=== PATIENT | male | born 1975 | race Caucasian/White ===

== ENCOUNTER 2017-05-04 07:19 | Emergency (ER) | payer OTHER ==
[~2017-05-04] VITALS: Ht 175.3 cm; Wt 125.0 kg
[2017-05-04 07:22] VITALS: BP 132/76; PULSE 96; RESP 18; TEMP 98.3; O2SAT 97
[2017-05-04] MEDS ORDERED: AMOX875T PO (07:31)
--- NOTE | 2017-05-04 07:36 | PD ---
HPI Chief Complaint: ENT Complaint Time Seen by Provider: 07:30 Travel History International Travel<30 days: No Contact w/Intl Traveler<30days: No Traveled to known affect area: No History of Present Illness HPI 42-year-old male here for evaluation of sore throat. Symptoms started yesterday. It is an aching pain is worse when swallowing. He endorses chills, subjective fevers. Denies rash, cough, congestion, recent travel. No significant past medical history. He denies any other complaints at this time. FOR[facility]LY [facility], [facility] Social History Alcohol Use: No Tobacco Use: No Substance Use: No Allergies-Medications (Allergen,Severity, Reaction): Coded Allergies: No Known Allergies (Unverified , 05/04/17) Reported Meds & Prescriptions Reported Meds & Active Scripts Active Amoxicillin 875 Mg Tab 875 Mg PO BID 10 Days Review of Systems Except as stated in HPI: all other systems reviewed are Neg Physical Exam Narrative GENERAL: Well-developed well-nourished male in no acute distress SKIN: Warm and dry. HEAD: Atraumatic. Normocephalic. EYES: Pupils equal and round. No scleral icterus. No injection or drainage. ENT: No nasal bleeding or discharge. Mucous membranes pink and moist. There is oropharyngeal erythema and exudate. Uvula midline with no mass effect. NECK: Trachea midline. No JVD. Mild anterior cervical lymphadenopathy. CARDIOVASCULAR: Regular rate and rhythm. No murmur appreciated. RESPIRATORY: No accessory muscle use. Clear to auscultation. Breath sounds equal bilaterally. Data Data Last Documented VS Vital Signs Date Time Temp Pulse Resp B/P (MAP) Pulse Ox O2 Delivery O2 Flow Rate FiO2 05/04/17 07:22 98.3 96 18 132/76 (94) 97 Orders Orders Ed Discharge Order (05/04/17 07:31) [facility] Medical Decision Making Medical Screen Exam Complete: Yes Emergency Medical Condition: Yes Medical Record Reviewed: Yes Differential Diagnosis Exudative pharyngitis, tonsillitis, peritonsillar abscess, infectious mononucleosis, herpangina, epiglottitis, retropharyngeal abscess Narrative Course 42-year-old male presents with sore throat and chills since yesterday. On examination he has oropharyngeal erythema and exudate, anterior cervical lymphadenopathy. He will be treated presumptively for streptococcal pharyngitis with amoxicillin. He is stable for discharge. Diagnosis Primary Impression: Exudative pharyngitis Additional Instructions: Medication as prescribed. Stay well hydrated well-nourished. Tylenol or Motrin for pain and fever per dosing instructions on bottle. Return for any acutely new or worsening symptoms. Med/Other Pt SpecificInfo: Prescription(s) given Scripts Amoxicillin (Amoxicillin) 875 Mg Tab 875 MG PO BID for Infection for 10 Days, #20 TAB 0 Refills Prov: Jai De Leon MD 05/04/17 Disposition: 01 DISCHARGE HOME Condition: Stable Kameron Courtney May 04, 2017 07:36
== END 2017-05-04 09:00 | disposition home or self-care (01) ==
LOC: NEPK 07:19
DX: J02.9 Acute pharyngitis, unspecified (principal)
CPT/HCPCS: 99283

== ENCOUNTER 2017-05-14 15:34 | Emergency (ER) | payer OTHER ==
[~2017-05-14] VITALS: Ht 175.3 cm; Wt 120.0 kg
[~2017-05-14 15:34] MED LIST: AMOX875T PO
[2017-05-14 15:35] VITALS: BP 167/98; PULSE 80; RESP 18; TEMP 98.2; O2SAT 99
[2017-05-14] MEDS ORDERED: SODIUM CHLOR 0.9% 1000 ML INJ 1,000 ML IV SCH (15:54)
[2017-05-14 16:00] VITALS: PULSE 76; RESP 18; O2SAT 100
[2017-05-14] MEDS ORDERED: HYDROmorphone HCL PF 1 MG/ML VIAL IVS ONE (16:00)
[2017-05-14] MEDS: ONDANSETRON HCL 4 MG/2 ML VIAL IVP ONE ×3 (16:00→16:34)
[2017-05-14] MEDS ORDERED: SODIUM CHLORIDE 0.9% FLUSH 10 ML FLUSH IV FLUSH PRN (16:00)
--- NOTE | 2017-05-14 16:05 | PD ---
HPI Chief Complaint: Complaint Time Seen by Provider: 15:49 Travel History International Travel<30 days: No Contact w/Intl Traveler<30days: No Traveled to known affect area: No History of Present Illness HPI Patient is a 42-year-old male with history of kidney stones which required urological intervention, presents to the emergency room with complaints of left- sided flank pain. Patient reports that 2 hours prior to presentation to the emergency room, he began to have sided left-sided flank pain. Patient reports that pain does radiate to his left groin. Patient reports that pain is associated with dysuria, urinary urgency, frequency and hematuria. Patient reports that the last time he had a kidney stone was 3 years ago, reports that the pain feels exactly the same as when he was diagnosed with a kidney stone in the past. Patient reports no nausea vomiting with symptoms, denies any fever or chills. Patient reports the pain is persistent and unrelenting. PFSH Past Medical History Kidney Stones: Yes Past Surgical History Other Surgery: Yes ("kidney stone surgery") Social History Alcohol Use: No Tobacco Use: No Substance Use: No Allergies-Medications (Allergen,Severity, Reaction): Coded Allergies: No Known Allergies (Unverified , 05/14/17) Reported Meds & Prescriptions Reported Meds & Active Scripts Active No Active Prescriptions or Reported Medications Review of Systems General / Constitutional: No: Fever, Chills Eyes: No: Visual changes HENT: No: Headaches Cardiovascular: No: Chest Pain or Discomfort Respiratory: No: Shortness of Breath Gastrointestinal: No: Nausea, Abdominal Pain Genitourinary: Positive: Urgency, Frequency, Dysuria, Hematuria, Hesitancy, Flank Pain, No: Discharge Musculoskeletal: No: Pain Skin: No Rash Neurologic: No: Weakness Psychiatric: No: Depression Endocrine: No: Polydipsia Hematologic/Lymphatic: No: Easy Bruising Physical Exam Narrative GENERAL: moderate distress SKIN: Focused skin assessment warm/dry. HEAD: Atraumatic. Normocephalic. EYES: Pupils equal and round. No scleral icterus. No injection or drainage. ENT: No nasal bleeding or discharge. Mucous membranes pink and moist. NECK: Trachea midline. No JVD. CARDIOVASCULAR: Regular rate and rhythm. No murmur appreciated. RESPIRATORY: No accessory muscle use. Clear to auscultation. Breath sounds equal bilaterally. GASTROINTESTINAL: Abdomen soft, non-tender, nondistended. Hepatic and splenic margins not palpable. Patient with left sided flank pain MUSCULOSKELETAL: No obvious deformities. No clubbing. No cyanosis. No edema. NEUROLOGICAL: Awake and alert. No obvious cranial nerve deficits. Motor grossly within normal limits. Normal speech. PSYCHIATRIC: Appropriate mood and affect; insight and judgment normal. Data Data Last Documented VS Vital Signs Date Time Temp Pulse Resp B/P (MAP) Pulse Ox O2 Delivery O2 Flow Rate FiO2 05/14/17 16:00 76 18 100 Room Air 05/14/17 15:35 98.2 Orders Orders Complete Blood Count With Diff (05/14/17 15:54) Comprehensive Metabolic Panel (05/14/17 15:54) Prothrombin Time / Inr (Pt) (05/14/17 15:54) Act Partial Throm Time (Ptt) (05/14/17 15:54) Urinalysis - C+S If Indicated (05/14/17 15:54) Ct Abd/Pel W/O Iv Contrast (05/14/17 15:54) Iv Access Insert/Monitor (05/14/17 15:54) Ecg Monitoring (05/14/17 15:54) Oximetry (05/14/17 15:54) Ondansetron Inj (Zofran Inj) (05/14/17 16:00) Sodium Chlor 0.9% 1000 Ml Inj (Ns 1000 M (05/14/17 15:54) Sodium Chloride 0.9% Flush (Ns Flush) (05/14/17 16:00) Hydromorphone Pf Inj (Dilaudid Pf Inj) (05/14/17 16:00) Ondansetron Inj (Zofran Inj) (05/14/17 16:30) Urine Culture (05/14/17 16:10) Labs Laboratory Tests Test 05/14/17 16:10 05/14/17 16:15 Urine Color YELLOW Urine Turbidity SLIGHT Urine pH 7.0 Urine Specific [place] 1.019 Urine Protein 30 mg/dL Urine Glucose (UA) NEG mg/dL Urine Ketones NEG mg/dL Urine Occult Blood LARGE Urine Nitrite NEG Urine Bilirubin NEG Urine Urobilinogen LESS THAN 2.0 MG/DL Urine Leukocyte Esterase TRACE Urine RBC /hpf Urine WBC 9 /hpf Urine Mucus FEW /lpf Microscopic Urinalysis Comment CULTURE INDICATED White Blood Count 15.5 TH/MM3 Red Blood Count 4.93 MIL/MM3 Hemoglobin 15.6 GM/DL Hematocrit 43.5 % Mean Corpuscular Volume 88.1 FL Mean Corpuscular Hemoglobin 31.6 PG Mean Corpuscular Hemoglobin Concent 35.9 % Red Cell Distribution Width 12.9 % Platelet Count 288 TH/MM3 Mean Platelet Volume 7.3 FL Neutrophils (%) (Auto) 75.1 % Lymphocytes (%) (Auto) 18.0 % Monocytes (%) (Auto) 5.3 % Eosinophils (%) (Auto) 1.0 % Basophils (%) (Auto) 0.6 % Neutrophils # (Auto) 11.6 TH/MM3 Lymphocytes # (Auto) 2.8 TH/MM3 Monocytes # (Auto) 0.8 TH/MM3 Eosinophils # (Auto) 0.2 TH/MM3 Basophils # (Auto) 0.1 TH/MM3 CBC Comment DIFF FINAL Differential Comment Prothrombin Time 11.4 SEC Prothromb Time International Ratio 1.0 RATIO Activated Partial Thromboplast Time 26.3 SEC MDM Medical Decision Making Medical Screen Exam Complete: Yes Emergency Medical Condition: Yes Medical Record Reviewed: Yes Interpretation(s) Vital Signs Date Time Temp Pulse Resp B/P (MAP) Pulse Ox O2 Delivery O2 Flow Rate FiO2 05/14/17 15:35 98.2 80 18 167/98 (121) 99 Differential Diagnosis kidney stone, pyelonephritis, muscle strain Narrative Course 42-year-old male with history of kidney stones, presents to emergency room complaints of left sided flank pain which has been ongoing for the past 2 hours During the course of the patients emergency department visit, the patients history, examination, and differential diagnosis were reviewed with the patient. The patient was placed on a surveillance system monitor with oximetry and frequent blood pressure monitoring. The patient had a 20-gauge IV access obtained and blood work sent for analysis. The patient was initially provided IV fluids, IV Zofran as well as IV Dilaudid The patients laboratory studies were reviewed and remarkable for: CBC & BMP Diagram 05/14/17 16:15 Radiology studies are pending. Patient signed out to Dr. Meyers at change of shift Scripts No Active Prescriptions or Reported Meds Karen Cuellar DO May 14, 2017 16:05
[2017-05-14] MEDS ORDERED: ONDANSETRON HCL 4 MG/2 ML VIAL IV PUSH ONE (16:30)
[2017-05-14 16:37] LABS: AUTOMATED NEUTROPHIL # 11.6 TH/MM3 (1.8-7.7); BASOPHIL # 0.1 TH/MM3 (0-0.2); BASOPHIL % 0.6 % (0.0-2.0); EOSINOPHIL # 0.2 TH/MM3 (0-0.4); HEMATOCRIT 43.5 % (39.0-51.0); HEMO FLAGS DIFF FINAL; LYMPHOCYTE # 2.8 TH/MM3 (1.0-4.8); MEAN CELL VOLUME 88.1 FL (80.0-100.0); MEAN CORPUSCULAR HEMOGLOBIN 31.6 PG (27.0-34.0); MEAN CORPUSCULAR HGB CONC 35.9 % (32.0-36.0); MONO % 5.3 % (0.0-8.0); NEUT % 75.1 % (16.0-70.0); PLATELET COUNT 288 TH/MM3 (150-450); RED BLOOD COUNT 4.93 MIL/MM3 (4.50-5.90); RED CELL DISTRIBUTION WIDTH 12.9 % (11.6-17.2); WHITE BLOOD COUNT 15.5 TH/MM3 (4.0-11.0)
[2017-05-14 16:37] LABS: BLOOD, URINE LARGE (NEG); GLUCOSE,URINE NEG (NEG); KETONE, URINE NEG (NEG); MUCUS URINE FEW /lpf (OCC); NITRITE,URINE NEG (NEG); URINE COLOR YELLOW (YELLW/STRAW)
[2017-05-14 16:39] LABS: COMMENT (UR) CULTURE INDICATED; CULTURE IF INDICATED CULTURE INDICATED
[2017-05-14 16:43] LABS: APTT (PATIENT) 26.3 SEC (24.3-30.1); PROTHROMBIN TIME - PATIENT 11.4 SEC (9.8-11.6)
[2017-05-14 16:54] LABS: ALKALINE PHOSPHATASE 63 U/L (45-117); TOTAL BILIRUBIN ADULT 0.6 MG/DL (0.2-1.0)
[2017-05-14 16:55] LABS: ALT (GPT) 55 U/L (12-78); ANION GAP 7 MEQ/L (5-15); AST (GOT) 33 U/L (15-37); BICARBONATE 28.8 MEQ/L (21.0-32.0); BLOOD UREA NITROGEN 23 MG/DL (7-18); CHLORIDE 102 MEQ/L (98-107); GLOMERULAR FILTRATION RATE 57 ML/MIN (>89); POTASSIUM 4.5 MEQ/L (3.5-5.1); SODIUM (NA) 138 MEQ/L (136-145)
[2017-05-14 17:01] VITALS: RESP 16
[2017-05-14] MEDS ORDERED: KETOROLAC TROMETHAMINE 30 MG/ML (IVP) VIAL IV PUSH ONE (17:15)
--- NOTE | 2017-05-14 17:35 | PD ---
Data Data Last Documented VS Vital Signs Date Time Temp Pulse Resp B/P (MAP) Pulse Ox O2 Delivery O2 Flow Rate FiO2 05/14/17 17:01 16 05/14/17 16:00 76 100 Room Air 05/14/17 15:35 98.2 Vital Signs Date Time Temp Pulse Resp B/P (MAP) Pulse Ox O2 Delivery O2 Flow Rate FiO2 05/14/17 17:01 16 05/14/17 16:00 76 18 100 Room Air 05/14/17 15:35 98.2 80 18 167/98 (121) 99 Orders Orders Complete Blood Count With Diff (05/14/17 15:54) Comprehensive Metabolic Panel (05/14/17 15:54) Prothrombin Time / Inr (Pt) (05/14/17 15:54) Act Partial Throm Time (Ptt) (05/14/17 15:54) Urinalysis - C+S If Indicated (05/14/17 15:54) Ct Abd/Pel W/O Iv Contrast (05/14/17 15:54) Iv Access Insert/Monitor (05/14/17 15:54) Ecg Monitoring (05/14/17 15:54) Oximetry (05/14/17 15:54) Ondansetron Inj (Zofran Inj) (05/14/17 16:00) Sodium Chlor 0.9% 1000 Ml Inj (Ns 1000 M (05/14/17 15:54) Sodium Chloride 0.9% Flush (Ns Flush) (05/14/17 16:00) Hydromorphone Pf Inj (Dilaudid Pf Inj) (05/14/17 16:00) Ondansetron Inj (Zofran Inj) (05/14/17 16:30) Urine Culture (05/14/17 16:10) Ketorolac Inj (Toradol Inj) (05/14/17 17:15) Ed Discharge Order (05/14/17 18:53) Labs Laboratory Tests Test 05/14/17 16:10 05/14/17 16:15 Urine Color YELLOW Urine Turbidity SLIGHT Urine pH 7.0 Urine Specific [place] 1.019 Urine Protein 30 mg/dL Urine Glucose (UA) NEG mg/dL Urine Ketones NEG mg/dL Urine Occult Blood LARGE Urine Nitrite NEG Urine Bilirubin NEG Urine Urobilinogen LESS THAN 2.0 MG/DL Urine Leukocyte Esterase TRACE Urine RBC /hpf Urine WBC 9 /hpf Urine Mucus FEW /lpf Microscopic Urinalysis Comment CULTURE INDICATED White Blood Count 15.5 TH/MM3 Red Blood Count 4.93 MIL/MM3 Hemoglobin 15.6 GM/DL Hematocrit 43.5 % Mean Corpuscular Volume 88.1 FL Mean Corpuscular Hemoglobin 31.6 PG Mean Corpuscular Hemoglobin Concent 35.9 % Red Cell Distribution Width 12.9 % Platelet Count 288 TH/MM3 Mean Platelet Volume 7.3 FL Neutrophils (%) (Auto) 75.1 % Lymphocytes (%) (Auto) 18.0 % Monocytes (%) (Auto) 5.3 % Eosinophils (%) (Auto) 1.0 % Basophils (%) (Auto) 0.6 % Neutrophils # (Auto) 11.6 TH/MM3 Lymphocytes # (Auto) 2.8 TH/MM3 Monocytes # (Auto) 0.8 TH/MM3 Eosinophils # (Auto) 0.2 TH/MM3 Basophils # (Auto) 0.1 TH/MM3 CBC Comment DIFF FINAL Differential Comment Prothrombin Time 11.4 SEC Prothromb Time International Ratio 1.0 RATIO Activated Partial Thromboplast Time 26.3 SEC Blood Urea Nitrogen 23 MG/DL Creatinine 1.37 MG/DL Random Glucose 123 MG/DL Total Protein 7.9 GM/DL Albumin 3.7 GM/DL Calcium Level 9.1 MG/DL Alkaline Phosphatase 63 U/L Aspartate Amino Transf (AST/SGOT) 33 U/L Alanine Aminotransferase (ALT/SGPT) 55 U/L Total Bilirubin 0.6 MG/DL Sodium Level 138 MEQ/L Potassium Level 4.5 MEQ/L Chloride Level 102 MEQ/L Carbon Dioxide Level 28.8 MEQ/L Anion Gap 7 MEQ/L Estimat Glomerular Filtration Rate 57 ML/MIN [facility] Medical Record Reviewed: Yes Supervised Visit with JOVANNY: No Narrative Course CBC & BMP Diagram 05/14/17 16:15 Total Protein 7.9, Albumin 3.7, Calcium Level 9.1, Alkaline Phosphatase 63, Aspartate Amino Transf (AST/SGOT) 33, Alanine Aminotransferase (ALT/SGPT) 55, Total Bilirubin 0.6 Urinalysis shows hematuria Patient has hydronephrosis with ureteral calculus Pain control though initially the Dilaudid likely provoked nausea and vomiting which was subsequently controlled with Zofran 8 mg. Last 24 hours Impressions Abdomen/Pelvis CT 05/14/17 1554 Signed Impressions: Service Date/Time: Sunday, May 14, 2017 17:39 - CONCLUSION: 1. 5 mm calcified stone in the distal left ureter near the uterovesical junction with mild dilation of left ureter. 2. Several bilateral renal stones without evidence of hydronephrosis on either side. Isai Guadalupe MD scrips as below Patient resting comfortably at time of reassessment prior to discharge at 705pm return precautions discussed follow up discussed patient amenable with plan Diagnosis Primary Impression: Ureterovesical junction (UVJ) obstruction Additional Impression: Ureter, calculus Referrals: Urologist 3 days Med/Other Pt SpecificInfo: Prescription(s) given Scripts Oxycodone-Acetaminophen (Percocet) 7.5-325 mg Tab 1 TAB PO Q6H Y for PAIN SCALE 6 TO 10, #10 TAB 0 Refills Prov: Sabino Meyers MD 05/14/17 Tamsulosin (Flomax) 0.4 Mg Cap 0.4 MG PO HS for Manage Prostate Problems, #4 CAP 0 Refills Prov: Sabino Meyers MD 05/14/17 Disposition: 01 DISCHARGE HOME Condition: Stable Sabino Meyers MD May 14, 2017 17:35
--- NOTE | 2017-05-14 18:42 | RADRPT ---
EXAM DATE/TIME: 05/14/2017 17:39 [place] COMPARISON: No previous studies available for comparison. INDICATIONS : Left flank and testicular pain today. ORAL CONTRAST: No oral contrast ingested. RADIATION DOSE: 32.01 CTDIvol (mGy) ; Patient body habitus MEDICAL HISTORY : None SURGICAL HISTORY : None. ENCOUNTER: Initial ACUITY: 1 day PAIN SCALE: 9/10 LOCATION: Left flank TECHNIQUE: Volumetric scanning of the abdomen and pelvis was performed. Using automated exposure control and ad justment of the mA and/or kV according to patient size, radiation dose was kept as low as reasonably achievable to obtain optimal diagnostic quality images. DICOM format image data is available electro nically for review and comparison. FINDINGS: LOWER LUNGS: The visualized lower lungs are clear. LIVER: Homogeneous density without lesion the noncontrast technique. There is no dilation of the biliary tr ee. No calcified gallstones. SPLEEN: Normal size without lesion. PANCREAS: Within normal limits. KIDNEYS: There are bilateral calcified renal stones, the largest is in the lower pole and the right side measu ring 7 mm. A total of 5 stones are present on the right and 2 stones are present on the left. No de finite evidence of hydronephrosis. The left ureter is mildly dilated and there is a calcified stone near the left ureterovesical junction measuring 5 mm. ADRENAL GLANDS: Within normal limits. VASCULAR: There is no aortic aneurysm. BOWEL/MESENTERY: No dilated loops of small or large bowel. A few small sigmoid diverticula without radiographic evide nce of diverticulitis. No evidence of free fluid. ABDOMINAL WALL: Within normal limits. RETROPERITONEUM: There is no lymphadenopathy. Incidental note of retroaortic left renal vein. BLADDER: Smooth margins. No calcifications within the lumen. REPRODUCTIVE: Within normal limits. INGUINAL: There is no lymphadenopathy or hernia. MUSCULOSKELETAL: Within normal limits for patient age. Bone island in the left iliac wing. CONCLUSION: 1. 5 mm calcified stone in the distal left ureter near the uterovesical junction with mild dilation o f left ureter. 2. Several bilateral renal stones without evidence of hydronephrosis on either side. Isai Guadalupe MD on May 14, 2017 at 18:36 Board Certified Radiologist. This report was verified electronically.
[2017-05-14] MEDS ORDERED: PERC7.5T13 PO (18:52)
[2017-05-14] MEDS ORDERED: TAMS5CAP PO (18:52)
== END 2017-05-14 19:10 | disposition home or self-care (01) ==
LOC: NEPD 15:34
DX: N20.1 Calculus of ureter (principal); N20.2 Calculus of kidney with calculus of ureter
CPT/HCPCS: 74176; 80053; 81001; 85025; 85610; 85730; 87086; 96361; 96374; 96375; 99285; J1170; J1885; J2405; J7030

== ENCOUNTER 2017-10-03 13:48 | Emergency (ER) | payer OTHER ==
[~2017-10-03 13:48] MED LIST changes: -AMOX875T PO; +PERC7.5T13 PO; +TAMS5CAP PO
[2017-10-03 13:56] VITALS: BP 140/77; PULSE 86; RESP 18; TEMP 97.5; O2SAT 98
[2017-10-03] MEDS ORDERED: SODIUM CHLOR 0.9% 1000 ML INJ 1,000 ML IV SCH (14:14)
[2017-10-03] MEDS ORDERED: ONDANSETRON HCL 4 MG/2 ML VIAL IVP ONE (14:15)
[2017-10-03] MEDS ORDERED: MORPHINE SULFATE 4 MG/ML INJ IV PUSH ONE (14:15)
[2017-10-03] MEDS ORDERED: KETOROLAC TROMETHAMINE 30 MG/ML (IVP) VIAL IVP ONE (14:15)
[2017-10-03] MEDS ORDERED: SODIUM CHLORIDE 0.9% FLUSH 10 ML FLUSH IV FLUSH PRN (14:15)
--- NOTE | 2017-10-03 14:27 | PD ---
HPI Chief Complaint: Complaint Time Seen by Provider: 14:02 Travel History International Travel<30 days: No Contact w/Intl Traveler<30days: No Traveled to known affect area: No History of Present Illness HPI The patient is a 42-year-old male who presents to the emergency department for left flank pain. The patient states his symptoms started 2 days ago, left lower back, radiating to the left groin. The patient states yesterday had pain radiating to the left testicle which has resolved. He denies any dysuria, frequency, or urgency. However, he does complain of dark- colored urine. The patient does have a history of prior kidney stones with similar symptoms. He denies any penile discharge or sexual activity in the last 6 months. He denies any swelling or pain in the scrotum and testicles today. He denies any associated fever, chills, or sweats. Symptoms are moderate. PFSH Past Medical History Kidney Stones: Yes Past Surgical History Other Surgery: Yes ("kidney stone surgery") Social History Alcohol Use: Yes (OCC) Tobacco Use: No Substance Use: No Allergies-Medications (Allergen,Severity, Reaction): Coded Allergies: No Known Allergies (Unverified , 05/14/17) Reported Meds & Prescriptions Reported Meds & Active Scripts Active Flomax (Tamsulosin HCl) 0.4 Mg Cap 0.4 Mg PO HS 7 Days Ibuprofen 600 Mg Tab 600 Mg PO Q6H PRN [place] (Hydrocodone-Acetaminophen) 5 Mg-325 Mg Tab 1 Tab PO Q6H PRN Percocet (Oxycodone-Acetaminophen) 7.5-325 mg Tab 1 Tab PO Q6H PRN Flomax (Tamsulosin HCl) 0.4 Mg Cap 0.4 Mg PO HS Review of Systems Except as stated in HPI: all other systems reviewed are Neg General / Constitutional: No: Fever Cardiovascular: No: Chest Pain or Discomfort Respiratory: No: Shortness of Breath Gastrointestinal: No: Nausea, Vomiting, Abdominal Pain Genitourinary: Positive: Hematuria, Flank Pain, No: Urgency, Frequency, Dysuria , Discharge Skin: No Rash Physical Exam Narrative GENERAL: Awake, alert, pleasant 42-year-old male who appears his stated age and is in no acute respiratory distress. SKIN: Focused skin assessment warm/dry. HEAD: Atraumatic. Normocephalic. EYES: No injection or drainage. ENT: No nasal bleeding or discharge. Mucous membranes pink and moist. NECK: Trachea midline. No JVD. CARDIOVASCULAR: Regular rate and rhythm. No murmur appreciated. RESPIRATORY: No accessory muscle use. Clear to auscultation. Breath sounds equal bilaterally. GASTROINTESTINAL: Abdomen soft, tender to palpation left lower quadrant. Back: No CVA tenderness. Genitourinary: Circumcised phallus. Both testicles are descended and nontender. No visible blood or drainage at the meatus. MUSCULOSKELETAL: No obvious deformities. No clubbing. No cyanosis. No edema. NEUROLOGICAL: Awake and alert. No obvious cranial nerve deficits. Motor grossly within normal limits. Normal speech. PSYCHIATRIC: Appropriate mood and affect; insight and judgment normal. Data Data Last Documented VS Vital Signs Date Time Temp Pulse Resp B/P (MAP) Pulse Ox O2 Delivery O2 Flow Rate FiO2 10/03/17 17:45 59 20 141/65 (90) 98 Room Air 10/03/17 13:56 97.5 Orders Orders Complete Blood Count With Diff (10/03/17 14:14) Comprehensive Metabolic Panel (10/03/17 14:14) Urinalysis - C+S If Indicated (10/03/17 14:14) Ct Abd/Pel W/O Iv Contrast (10/03/17 14:14) Iv Access Insert/Monitor (10/03/17 14:14) Ecg Monitoring (10/03/17 14:14) Oximetry (10/03/17 14:14) Morphine Inj (Morphine Inj) (10/03/17 14:15) Ondansetron Inj (Zofran Inj) (10/03/17 14:15) Sodium Chlor 0.9% 1000 Ml Inj (Ns 1000 M (10/03/17 14:14) Sodium Chloride 0.9% Flush (Ns Flush) (10/03/17 14:15) Ketorolac Inj (Toradol Inj) (10/03/17 14:15) Morphine Inj (Morphine Inj) (10/03/17 18:00) Ed Discharge Order (10/03/17 18:01) Labs Laboratory Tests Test 10/03/17 16:51 White Blood Count 10.8 TH/MM3 Red Blood Count 4.66 MIL/MM3 Hemoglobin 14.2 GM/DL Hematocrit 41.1 % Mean Corpuscular Volume 88.2 FL Mean Corpuscular Hemoglobin 30.4 PG Mean Corpuscular Hemoglobin Concent 34.5 % Red Cell Distribution Width 13.2 % Platelet Count 226 TH/MM3 Mean Platelet Volume 7.9 FL Neutrophils (%) (Auto) 57.3 % Lymphocytes (%) (Auto) 30.6 % Monocytes (%) (Auto) 9.2 % Eosinophils (%) (Auto) 2.4 % Basophils (%) (Auto) 0.5 % Neutrophils # (Auto) 6.2 TH/MM3 Lymphocytes # (Auto) 3.3 TH/MM3 Monocytes # (Auto) 1.0 TH/MM3 Eosinophils # (Auto) 0.3 TH/MM3 Basophils # (Auto) 0.1 TH/MM3 CBC Comment DIFF FINAL Differential Comment Urine Color YELLOW Urine Turbidity CLEAR Urine pH 7.0 Urine Specific [place] 1.022 Urine Protein TRACE mg/dL Urine Glucose (UA) NEG mg/dL Urine Ketones NEG mg/dL Urine Occult Blood MOD Urine Nitrite NEG Urine Bilirubin NEG Urine Urobilinogen 2.0 MG/DL Urine Leukocyte Esterase NEG Urine RBC /hpf Urine WBC LESS THAN 1 /hpf Urine Amorphous Sediment OCC Urine Mucus FEW /lpf Microscopic Urinalysis Comment CULT NOT INDICATED Blood Urea Nitrogen 18 MG/DL Creatinine 0.96 MG/DL Random Glucose 76 MG/DL Total Protein 6.6 GM/DL Albumin 3.3 GM/DL Calcium Level 8.7 MG/DL Alkaline Phosphatase 59 U/L Aspartate Amino Transf (AST/SGOT) 28 U/L Alanine Aminotransferase (ALT/SGPT) 39 U/L Total Bilirubin 0.7 MG/DL Sodium Level 143 MEQ/L Potassium Level 3.9 MEQ/L Chloride Level 108 MEQ/L Carbon Dioxide Level 28.5 MEQ/L Anion Gap 7 MEQ/L Estimat Glomerular Filtration Rate 86 ML/MIN [facility] Medical Decision Making Medical Screen Exam Complete: Yes Emergency Medical Condition: Yes Medical Record Reviewed: Yes Interpretation(s) Last Impressions Abdomen/Pelvis CT 10/03/17 1414 Signed Impressions: Service Date/Time: Tuesday, October 03, 2017 14:29 - CONCLUSION: 1. Bilateral nonobstructing renal calculi. 2. Diverticulosis without diverticulitis. 3. Distal nonobstructing left ureteral calculus measuring 4-5 mm. Dann Hardwick MD Differential Diagnosis Differential diagnosis includes UTI, epididymitis, nephrolithiasis, hydronephrosis, testicular torsion, diverticulitis. Narrative Course IV was established, labs are drawn and sent, and the patient was placed on cardiac telemetry monitoring and continuous pulse oximetry monitoring. UA was sent to lab. Noncontrast CT of the abdomen and pelvis was performed to evaluate for nephrolithiasis/diverticulitis. The patient was administered Toradol, morphine, Zofran, and IV fluids. CT reveals a 4-5 mm distal left ureteral stent. The patient was signed out to the oncoming physician at 5 PM with laboratory evaluation pending. Diagnosis Primary Impression: Nephrolithiasis Patient Instructions: General Instructions Additional Instructions: Flomax at night as directed. [place] and ibuprofen as needed for pain. Please provide the patient a copy of his lab results and CT results at discharge. Follow-up with urology as needed. Return if symptoms worsen or progress. Med/Other Pt SpecificInfo: Prescription(s) given Scripts Tamsulosin (Flomax) 0.4 Mg Cap 0.4 MG PO HS for Manage Prostate Problems for 7 Days, #7 CAP 0 Refills Prov: Mendel Alvarez MD 10/03/17 Ibuprofen (Ibuprofen) 600 Mg Tab 600 MG PO Q6H Y for Pain/Inflammation, #20 TAB 0 Refills Prov: Mendel Alvarez MD 10/03/17 Hydrocodone-Acetaminophen ([place]) 5 Mg-325 Mg Tab 1 TAB PO Q6H Y for PAIN, #12 TAB 0 Refills Prov: Mendel Alvarez MD 10/03/17 Disposition: 01 DISCHARGE HOME Condition: Stable Mendel Alvarez MD Oct 03, 2017 14:27
--- NOTE | 2017-10-03 15:03 | RADRPT ---
EXAM DATE/TIME: 10/03/2017 14:29 [place] COMPARISON: CT ABDOMEN & PELVIS W/O CONTRAST, May 14, 2017, 17:39. INDICATIONS : Left testicle and lower back pain since Tuesday. ORAL CONTRAST: No oral contrast ingested. RADIATION DOSE: 11.36 CTDIvol (mGy) MEDICAL HISTORY : Renal calculi. SURGICAL HISTORY : None. ENCOUNTER: Initial ACUITY: 1 day PAIN SCALE: 5/10 LOCATION: Left flank TECHNIQUE: Volumetric scanning of the abdomen and pelvis was performed. Using automated exposure control and ad justment of the mA and/or kV according to patient size, radiation dose was kept as low as reasonably achievable to obtain optimal diagnostic quality images. DICOM format image data is available electro nically for review and comparison. FINDINGS: LOWER LUNGS: The visualized lower lungs are clear. LIVER: Homogeneous density without lesion. There is no dilation of the biliary tree. No calcified gallston es. SPLEEN: Normal size without lesion. PANCREAS: Within normal limits. KIDNEYS: Normal in size and shape. There is no mass or hydronephrosis. 3 non-obstructing right sided renal ca lculi measuring 4-6 mm in size. A 2 mm nonobstructing calculus superior pole left kidney. Distal left ureteral calculus measures 4-5 mm. ADRENAL GLANDS: Within normal limits. VASCULAR: There is no aortic aneurysm. BOWEL/MESENTERY: Diverticulosis without diverticulitis. There is no free intraperitoneal air or fluid. ABDOMINAL WALL: Within normal limits. RETROPERITONEUM: There is no lymphadenopathy. BLADDER: No wall thickening or mass. REPRODUCTIVE: Within normal limits. INGUINAL: There is no lymphadenopathy or hernia. MUSCULOSKELETAL: Within normal limits for patient age. CONCLUSION: 1. Bilateral nonobstructing renal calculi. 2. Diverticulosis without diverticulitis. 3. Distal nonobstructing left ureteral calculus measuring 4-5 mm. Dann Hardwick MD on October 03, 2017 at 14:57 Board Certified Radiologist. This report was verified electronically.
[2017-10-03] MEDS ORDERED: IBUP-232 PO (16:51)
[2017-10-03] MEDS ORDERED: TAMS5CAP PO (16:51)
[2017-10-03] MEDS ORDERED: NORC5TAB PO (16:51)
[2017-10-03 17:30] LABS: AUTOMATED NEUTROPHIL # 6.2 TH/MM3 (1.8-7.7); BASOPHIL # 0.1 TH/MM3 (0-0.2); BASOPHIL % 0.5 % (0.0-2.0); EOSINOPHIL # 0.3 TH/MM3 (0-0.4); EOSINOPHIL % 2.4 % (0.0-4.0); HEMATOCRIT 41.1 % (39.0-51.0); HEMOGLOBIN 14.2 GM/DL (13.0-17.0); LYMPH % 30.6 % (9.0-44.0); LYMPHOCYTE # 3.3 TH/MM3 (1.0-4.8); MEAN CELL VOLUME 88.2 FL (80.0-100.0); MEAN CORPUSCULAR HEMOGLOBIN 30.4 PG (27.0-34.0); MEAN CORPUSCULAR HGB CONC 34.5 % (32.0-36.0); MEAN PLATELET VOLUME 7.9 FL (7.0-11.0); MONO % 9.2 % (0.0-8.0); NEUT % 57.3 % (16.0-70.0); PLATELET COUNT 226 TH/MM3 (150-450); RED BLOOD COUNT 4.66 MIL/MM3 (4.50-5.90); RED CELL DISTRIBUTION WIDTH 13.2 % (11.6-17.2); WHITE BLOOD COUNT 10.8 TH/MM3 (4.0-11.0)
[2017-10-03 17:42] LABS: AMORPHOUS SEDIMENT, URINE OCC; BILIRUBIN, URINE NEG (NEG); BLOOD, URINE MOD (NEG); GLUCOSE,URINE NEG (NEG); KETONE, URINE NEG (NEG); MUCUS URINE FEW /lpf (OCC); NITRITE,URINE NEG (NEG); URINE COLOR YELLOW (YELLW/STRAW); URINE LEUKOCYTE ESTERASE NEG (NEG)
[2017-10-03 17:45] VITALS: BP 141/65; PULSE 59; RESP 20; O2SAT 98
[2017-10-03 17:50] LABS: ALBUMIN 3.3 GM/DL (3.4-5.0); ALT (GPT) 39 U/L (12-78); AST (GOT) 28 U/L (15-37); BICARBONATE 28.5 MEQ/L (21.0-32.0); BLOOD UREA NITROGEN 18 MG/DL (7-18); CALCIUM 8.7 MG/DL (8.5-10.1); CHLORIDE 108 MEQ/L (98-107); CREATININE 0.96 MG/DL (0.60-1.30); GLOMERULAR FILTRATION RATE 86 ML/MIN (>89); GLUCOSE,RANDOM 76 MG/DL (74-106); SODIUM (NA) 143 MEQ/L (136-145)
[2017-10-03 17:51] LABS: ALKALINE PHOSPHATASE 59 U/L (45-117); TOTAL BILIRUBIN ADULT 0.7 MG/DL (0.2-1.0); TOTAL PROTEIN 6.6 GM/DL (6.4-8.2)
[2017-10-03] MEDS ORDERED: MORPHINE SULFATE 2 MG/ML SYRINGE IV PUSH ONE (18:00)
--- NOTE | 2017-10-03 18:01 | PD ---
Data Data Last Documented VS Vital Signs Date Time Temp Pulse Resp B/P (MAP) Pulse Ox O2 Delivery O2 Flow Rate FiO2 10/03/17 17:45 59 20 141/65 (90) 98 Room Air 10/03/17 13:56 97.5 Orders Orders Complete Blood Count With Diff (10/03/17 14:14) Comprehensive Metabolic Panel (10/03/17 14:14) Urinalysis - C+S If Indicated (10/03/17 14:14) Ct Abd/Pel W/O Iv Contrast (10/03/17 14:14) Iv Access Insert/Monitor (10/03/17 14:14) Ecg Monitoring (10/03/17 14:14) Oximetry (10/03/17 14:14) Morphine Inj (Morphine Inj) (10/03/17 14:15) Ondansetron Inj (Zofran Inj) (10/03/17 14:15) Sodium Chlor 0.9% 1000 Ml Inj (Ns 1000 M (10/03/17 14:14) Sodium Chloride 0.9% Flush (Ns Flush) (10/03/17 14:15) Ketorolac Inj (Toradol Inj) (10/03/17 14:15) Morphine Inj (Morphine Inj) (10/03/17 18:00) Labs Laboratory Tests Test 10/03/17 16:51 White Blood Count 10.8 TH/MM3 Red Blood Count 4.66 MIL/MM3 Hemoglobin 14.2 GM/DL Hematocrit 41.1 % Mean Corpuscular Volume 88.2 FL Mean Corpuscular Hemoglobin 30.4 PG Mean Corpuscular Hemoglobin Concent 34.5 % Red Cell Distribution Width 13.2 % Platelet Count 226 TH/MM3 Mean Platelet Volume 7.9 FL Neutrophils (%) (Auto) 57.3 % Lymphocytes (%) (Auto) 30.6 % Monocytes (%) (Auto) 9.2 % Eosinophils (%) (Auto) 2.4 % Basophils (%) (Auto) 0.5 % Neutrophils # (Auto) 6.2 TH/MM3 Lymphocytes # (Auto) 3.3 TH/MM3 Monocytes # (Auto) 1.0 TH/MM3 Eosinophils # (Auto) 0.3 TH/MM3 Basophils # (Auto) 0.1 TH/MM3 CBC Comment DIFF FINAL Differential Comment Urine Color YELLOW Urine Turbidity CLEAR Urine pH 7.0 Urine Specific [place] 1.022 Urine Protein TRACE mg/dL Urine Glucose (UA) NEG mg/dL Urine Ketones NEG mg/dL Urine Occult Blood MOD Urine Nitrite NEG Urine Bilirubin NEG Urine Urobilinogen 2.0 MG/DL Urine Leukocyte Esterase NEG Urine RBC /hpf Urine WBC LESS THAN 1 /hpf Urine Amorphous Sediment OCC Urine Mucus FEW /lpf Microscopic Urinalysis Comment CULT NOT INDICATED Blood Urea Nitrogen 18 MG/DL Creatinine 0.96 MG/DL Random Glucose 76 MG/DL Total Protein 6.6 GM/DL Albumin 3.3 GM/DL Calcium Level 8.7 MG/DL Alkaline Phosphatase 59 U/L Aspartate Amino Transf (AST/SGOT) 28 U/L Alanine Aminotransferase (ALT/SGPT) 39 U/L Total Bilirubin 0.7 MG/DL Sodium Level 143 MEQ/L Potassium Level 3.9 MEQ/L Chloride Level 108 MEQ/L Carbon Dioxide Level 28.5 MEQ/L Anion Gap 7 MEQ/L Estimat Glomerular Filtration Rate 86 ML/MIN MDM Supervised Visit with JOVANNY: No Narrative Course The patient was initially evaluated by the previous provider and signed out to me at the beginning of my shift approximately 5:00 PM pending labs, UA, and disposition. See his note for further details. Briefly this is a 42-year-old male with left flank pain with CT scan that shows a 4-5 mm left distal ureteral calculus. He was provided pain medication by the previous provider with improvement in symptoms. CBC is unremarkable. CMP is unremarkable. UA shows moderate occult blood with innumerable RBCs, not suggestive of UTI. Patient was made aware of all findings. He is stable for discharge home with outpatient follow-up with a urologist this week. He was advised on when to return to the emergency department. He verbalizes understanding and agreement with plan. Diagnosis Primary Impression: Nephrolithiasis Patient Instructions: General Instructions Additional Instruction: Flomax at night as directed. [place] and ibuprofen as needed for pain. Please provide the patient a copy of his lab results and CT results at discharge. Follow-up with urology as needed. Return if symptoms worsen or progress. Scripts Tamsulosin (Flomax) 0.4 Mg Cap 0.4 MG PO HS for Manage Prostate Problems for 7 Days, #7 CAP 0 Refills Prov: Mendel Alvarez MD 10/03/17 Ibuprofen (Ibuprofen) 600 Mg Tab 600 MG PO Q6H Y for Pain/Inflammation, #20 TAB 0 Refills Prov: Mendel Alvarez MD 10/03/17 Hydrocodone-Acetaminophen ([place]) 5 Mg-325 Mg Tab 1 TAB PO Q6H Y for PAIN, #12 TAB 0 Refills Prov: Mendel Alvarez MD 10/03/17 Disposition: 01 DISCHARGE HOME Condition: Ifeanyi Womack MD Oct 03, 2017 18:01
== END 2017-10-03 19:02 | disposition home or self-care (01) ==
LOC: NEPD 13:48
DX: N20.2 Calculus of kidney with calculus of ureter (principal); Z87.442 Personal history of urinary calculi
CPT/HCPCS: 74176; 80053; 81001; 85025; 96361; 96374; 96375; 96376; 99284; J1885; J2270; J2405; J7030

== ENCOUNTER 2017-10-10 14:15 | Emergency (ER) | payer OTHER ==
[~2017-10-10] VITALS: Ht 175.3 cm; Wt 122.7 kg
[~2017-10-10 14:15] MED LIST changes: +IBUP-232 PO; +NORC5TAB PO
[2017-10-10 14:58] VITALS: BP 149/91; PULSE 74; RESP 18; TEMP 97.9; O2SAT 97
[2017-10-10 15:35] LABS: BILIRUBIN, URINE NEG (NEG); BLOOD, URINE SMALL (NEG); GLUCOSE,URINE NEG (NEG); KETONE, URINE NEG (NEG); MUCUS URINE FEW /lpf (OCC); NITRITE,URINE NEG (NEG); URINE COLOR LIGHT-YELLOW (YELLW/STRAW); URINE LEUKOCYTE ESTERASE NEG (NEG)
[2017-10-10 17:25] LABS: AUTOMATED NEUTROPHIL # 4.6 TH/MM3 (1.8-7.7); BASOPHIL # 0.1 TH/MM3 (0-0.2); BASOPHIL % 0.6 % (0.0-2.0); EOSINOPHIL # 0.1 TH/MM3 (0-0.4); EOSINOPHIL % 1.8 % (0.0-4.0); HEMATOCRIT 43.1 % (39.0-51.0); HEMOGLOBIN 14.9 GM/DL (13.0-17.0); LYMPH % 34.1 % (9.0-44.0); LYMPHOCYTE # 2.8 TH/MM3 (1.0-4.8); MEAN CELL VOLUME 88.3 FL (80.0-100.0); MEAN CORPUSCULAR HEMOGLOBIN 30.6 PG (27.0-34.0); MEAN CORPUSCULAR HGB CONC 34.6 % (32.0-36.0); MEAN PLATELET VOLUME 7.9 FL (7.0-11.0); MONO % 7.5 % (0.0-8.0); MONOCYTE # 0.6 TH/MM3 (0-0.9); PLATELET COUNT 240 TH/MM3 (150-450); RED BLOOD COUNT 4.89 MIL/MM3 (4.50-5.90); RED CELL DISTRIBUTION WIDTH 13.2 % (11.6-17.2); WHITE BLOOD COUNT 8.2 TH/MM3 (4.0-11.0)
[2017-10-10 17:32] LABS: ALBUMIN 3.7 GM/DL (3.4-5.0); AST (GOT) 21 U/L (15-37); BICARBONATE 27.4 MEQ/L (21.0-32.0); BLOOD UREA NITROGEN 13 MG/DL (7-18); CALCIUM 8.7 MG/DL (8.5-10.1); CHLORIDE 107 MEQ/L (98-107); CREATININE 0.87 MG/DL (0.60-1.30); GLOMERULAR FILTRATION RATE 96 ML/MIN (>89); GLUCOSE,RANDOM 76 MG/DL (74-106); SODIUM (NA) 143 MEQ/L (136-145)
[2017-10-10 17:38] LABS: ALKALINE PHOSPHATASE 57 U/L (45-117); ALT (GPT) 40 U/L (12-78); TOTAL BILIRUBIN ADULT 0.5 MG/DL (0.2-1.0); TOTAL PROTEIN 7.4 GM/DL (6.4-8.2)
[2017-10-10 17:41] VITALS: BP 155/81; PULSE 54; RESP 18; O2SAT 98
[2017-10-10] MEDS ORDERED: TAMS5CAP PO (18:14)
[2017-10-10] MEDS ORDERED: NORC5TAB PO (18:14)
--- NOTE | 2017-10-10 18:14 | PD ---
HPI Chief Complaint: Flank/Kidney Pain Time Seen by Provider: 17:31 Travel History International Travel<30 days: No Contact w/Intl Traveler<30days: No Traveled to known affect area: No History of Present Illness HPI 42-year-old male presents to the emergency department with complaint of right flank pain and pain in his penis after possibly passing some kidney stones and having Continued kidney stones for the past week. He was seen here on October 03 and was told he had multiple kidney stones bilaterally right. He was given Flomax and hydrocodone which he is now out of. He says he took his last hydrocodone last night. The hospital he denies fever, vomiting, abdominal pain. Reports dark colored urine, but urine becomes quite yellow after drinking lots of fluids. Rates pain 6/10. Took beers aspirin prior to arrival for symptom management. Hydrocodone and Flomax were helping with his symptoms. He has history of kidney stones and has a urologist in [place]. 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 His primary care provider is in [place]. No known allergies. History of kidney stones. Denies other significant past medical history. Has no other medical complaints. No other modifying factors or associated signs and symptoms. PFSH Past Medical History Diverticulitis: Yes Kidney Stones: Yes Past Surgical History Other Surgery: Yes ("kidney stone surgery", fatty tumor removed) Social History Alcohol Use: Yes (OCC) Tobacco Use: No Substance Use: No Allergies-Medications (Allergen,Severity, Reaction): Coded Allergies: No Known Allergies (Unverified , 05/14/17) Reported Meds & Prescriptions Reported Meds & Active Scripts Active Bowbells (Hydrocodone-Acetaminophen) 5 Mg-325 Mg Tab 1 Tab PO Q4H PRN Flomax (Tamsulosin HCl) 0.4 Mg Cap 0.4 Mg PO HS 3 Days Ibuprofen 600 Mg Tab 600 Mg PO Q6H PRN [place] (Hydrocodone-Acetaminophen) 5 Mg-325 Mg Tab 1 Tab PO Q6H PRN Flomax (Tamsulosin HCl) 0.4 Mg Cap 0.4 Mg PO HS Review of Systems Except as stated in HPI: all other systems reviewed are Neg Physical Exam Narrative GENERAL: Well-nourished, well-developed male patient, in no acute distress SKIN: Warm and dry. No rash. HEAD: Atraumatic. Normocephalic. EYES: Pupils equal and round. No scleral icterus. No injection or drainage. ENT: Mucosa pink and moist. NECK: Trachea midline. CARDIOVASCULAR: Regular rate and rhythm. No murmur appreciated. RESPIRATORY: No accessory muscle use. Clear to auscultation. Breath sounds equal bilaterally. GASTROINTESTINAL: Abdomen soft, non-tender, nondistended. Hepatic and splenic margins not palpable. Bowel sounds are active 4 quadrants. Bladder nontender and nondistended. MUSCULOSKELETAL: No obvious deformities. No clubbing. No cyanosis. No edema. BACK: No CVA tenderness NEUROLOGICAL: Awake and alert. Oriented 3. No obvious cranial nerve deficits. Motor grossly within normal limits. Normal speech. Moves all extremities. 5/5 strength to all extremities. PSYCHIATRIC: Appropriate mood and affect; insight and judgment normal. Data Data Last Documented VS Vital Signs Date Time Temp Pulse Resp B/P (MAP) Pulse Ox O2 Delivery O2 Flow Rate FiO2 10/10/17 18:29 10/10/17 17:41 54 18 98 Room Air 10/10/17 14:58 97.9 Orders Orders Complete Blood Count With Diff (10/10/17 15:00) Comprehensive Metabolic Panel (10/10/17 15:00) Lipase (10/10/17 15:00) Urinalysis - C+S If Indicated (10/10/17 15:00) Ed Discharge Order (10/10/17 18:15) Labs Laboratory Tests Test 10/10/17 15:00 10/10/17 16:25 Urine Color LIGHT-YELLOW Urine Turbidity CLEAR Urine pH 7.0 Urine Specific [place] 1.014 Urine Protein NEG mg/dL Urine Glucose (UA) NEG mg/dL Urine Ketones NEG mg/dL Urine Occult Blood SMALL Urine Nitrite NEG Urine Bilirubin NEG Urine Urobilinogen LESS THAN 2.0 MG/DL Urine Leukocyte Esterase NEG Urine RBC 83 /hpf Urine WBC 1 /hpf Urine Mucus FEW /lpf Microscopic Urinalysis Comment CULT NOT INDICATED White Blood Count 8.2 TH/MM3 Red Blood Count 4.89 MIL/MM3 Hemoglobin 14.9 GM/DL Hematocrit 43.1 % Mean Corpuscular Volume 88.3 FL Mean Corpuscular Hemoglobin 30.6 PG Mean Corpuscular Hemoglobin Concent 34.6 % Red Cell Distribution Width 13.2 % Platelet Count 240 TH/MM3 Mean Platelet Volume 7.9 FL Neutrophils (%) (Auto) 56.0 % Lymphocytes (%) (Auto) 34.1 % Monocytes (%) (Auto) 7.5 % Eosinophils (%) (Auto) 1.8 % Basophils (%) (Auto) 0.6 % Neutrophils # (Auto) 4.6 TH/MM3 Lymphocytes # (Auto) 2.8 TH/MM3 Monocytes # (Auto) 0.6 TH/MM3 Eosinophils # (Auto) 0.1 TH/MM3 Basophils # (Auto) 0.1 TH/MM3 CBC Comment DIFF FINAL Differential Comment Blood Urea Nitrogen 13 MG/DL Creatinine 0.87 MG/DL Random Glucose 76 MG/DL Total Protein 7.4 GM/DL Albumin 3.7 GM/DL Calcium Level 8.7 MG/DL Alkaline Phosphatase 57 U/L Aspartate Amino Transf (AST/SGOT) 21 U/L Alanine Aminotransferase (ALT/SGPT) 40 U/L Total Bilirubin 0.5 MG/DL Sodium Level 143 MEQ/L Potassium Level 3.9 MEQ/L Chloride Level 107 MEQ/L Carbon Dioxide Level 27.4 MEQ/L Anion Gap 9 MEQ/L Estimat Glomerular Filtration Rate 96 ML/MIN Lipase 434 U/L MDM Medical Decision Making Medical Screen Exam Complete: Yes Emergency Medical Condition: Yes Medical Record Reviewed: Yes Differential Diagnosis Nephrolithiasis, pain management, medical clearance, medication refill Narrative Course 42-year-old male that was seen here on October 03 and had multiple kidney stones bilaterally. Afebrile and nontoxic-appearing. Denies fever, vomiting. CT abdomen/pelvis on October 03 concluded: Bilateral nonobstructing renal calculi;. Diverticulosis without diverticulitis; Distal nonobstructing left ureteral calculus measuring 4-5 mm. Patient has been straining his urine and thinks he has passed 2 of the stones. He has urologist in [place]. 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 I discussed the patient with Dr. De Leon and he agrees with my plan of care. Bowbells and Flomax prescribed for home. Instructed patient to follow up with primary care provider. Patient verbalizes understanding and agreement with treatment plan. Patient is medically cleared and stable for discharge. Discussed reasons to return to the emergency department. Patient agrees with treatment plan. The patients vital signs are stable and the patient is stable for outpatient follow-up and treatment. Patient discharged home, stable and in no acute distress. Diagnosis Primary Impression: Nephrolithiasis Referrals: Primary Care Physician Urologist Patient Instructions: General Instructions, Kidney Stones (ED) Additional Instructions: Ibuprofen or Tylenol as needed and as directed to reduce pain Drink plenty of fluids Strain urine Follow-up with primary care provider Follow-up with urologist Return to the emergency department immediately with worsening of symptoms Med/Other Pt SpecificInfo: Prescription(s) given Scripts Hydrocodone-Acetaminophen ([place]) 5 Mg-325 Mg Tab 1 TAB PO Q4H Y for PAIN, #8 TAB 0 Refills Prov: Sultana Anderson 10/10/17 Tamsulosin (Flomax) 0.4 Mg Cap 0.4 MG PO HS for Manage Prostate Problems for 3 Days, #30 CAP 0 Refills Prov: Sultana Anderson 10/10/17 Disposition: 01 DISCHARGE HOME Condition: Stable Sultana Anderson Oct 10, 2017 18:14
== END 2017-10-10 18:46 | disposition home or self-care (01) ==
LOC: NEPD 14:15
DX: N20.0 Calculus of kidney (principal); Z87.442 Personal history of urinary calculi; Z79.899 Other long term (current) drug therapy
CPT/HCPCS: 80053; 81001; 83690; 85025; 99283